=== PATIENT | female | born 1945 | race Hispanic/Latino ===

== ENCOUNTER 2021-09-30 23:44 | Emergency (ER) | payer BC, MEDICARE ==
[~2021-09-30] VITALS: Ht 170.2 cm; Wt 125.2 kg
[2021-10-01] MEDS ORDERED: ONDANSETRON 4MG INJ IVP STA (00:22)
[2021-10-01] MEDS ORDERED: MECLIZINE HCL 25 MG TABLET PO STA (00:22)
[2021-10-01 00:42] LABS: BASOPHILS % (AUTO) 0.4 % (0.0-5.0); EOSINOPHILS % (AUTO) 1.4 % (0.0-8.0); HEMATOCRIT 41.9 % (36-48); LYMPHOCYTES % (AUTO) 14.5 % (21.0-51.0); MEAN CORPUSCULAR HEMOGLOBIN 29.9 pg (27.0-33.0); MEAN CORPUSCULAR HGB CONC 32.2 g/dL (32.0-36.0); MEAN CORPUSCULAR VOLUME 92.9 fL (79-99); MONOCYTES % (AUTO) 6.5 % (3.0-13.0); PLATELET COUNT (AUTO) 175 K/uL (130-400); RED BLOOD CELL COUNT(AUTO) 4.51 MIL/uL (4.00-5.50); RED CELL DISTRIBUTION WIDTH 13.2 % (11.0-15.5); WHITE BLOOD COUNT (AUTO) 9.1 K/uL (4.8-10.8)
[2021-10-01 00:55] LABS: CREATININE 1.3 mg/dL (0.5-1.5); POTASSIUM 3.9 mmol/L (3.5-5.1)
[2021-10-01 01:02] LABS: ALBUMIN 3.7 g/dL (3.5-5.0); BILIRUBIN,TOTAL 0.4 mg/dL (0.2-1.0); TOTAL PROTEIN, SERUM 6.9 g/dL (6.0-8.3)
[2021-10-01 01:07] LABS: APPEARANCE,URINE Clear (CLEAR); BILIRUBIN,URINE Negative (NEGATIVE); COLOR,URINE Yellow (YELLOW); GLUCOSE, URINE (UA) Negative (NEGATIVE); KETONES,URINE Negative (NEGATIVE); LEUKOCYTE ESTERASE ,URINE Small (NEGATIVE); NITRATE,URINE Negative (NEGATIVE); OCCULT BLOOD,URINE Negative (NEGATIVE); PROTEIN,URINE POS 1+ mg/dL (NEGATIVE)
[2021-10-01 01:18] LABS: BACTERIA,URINE None Seen /HPF (None Seen); RBC,URINE None Seen /HPF (0-1); SQUAMOUS EPITHELIAL CELL,UR Moderate /HPF (0-2)
[2021-10-01 02:00] VITALS: BP 139/53
[2021-10-01] MEDS ORDERED: MECL-226 PO (03:11)
[2021-10-01] MEDS ORDERED: MACR100 PO (03:12)
== END 2021-10-01 03:24 | disposition home or self-care (01) ==
LOC: EDH 23:44
DX: R42 Dizziness and giddiness (principal); H83.09 Labyrinthitis, unspecified ear; E11.9 Type 2 diabetes mellitus without complications; I10 Essential (primary) hypertension
CPT/HCPCS: 99283; 80053; 85025; 81001; 36415; 96374; J2405